=== PATIENT | female | born 1975 | race Caucasian/White ===

== ENCOUNTER 2016-07-17 12:32 | Emergency (ER) | payer SELFPAY ==
[~2016-07-17 12:32] MED LIST: ACTOS15 MG PO; ALPRAZOLAM1 MG PO; AMBIEN10 MG PO; AMOXICILLIN875 MG PO; GLUCOPHAGE1000 MG PO; LEXAPRO10 MG PO; OXYCODONE/APAP PO; PRAVACHOL40 MG PO; TRAZODONE HCL100 M1 PO; TRAZODONE50 MG PO; WELLBUTRIN XL150 MG PO
[2016-07-17] MEDS ORDERED: LANTUS SOL100 UNIT/1 SC (13:29)
[2016-07-17] MEDS ORDERED: ALPRAZOLAM1 M3 PO (13:29)
[2016-07-17] MEDS ORDERED: PRINIVIL5 M1 PO (13:29)
[2016-07-17] MEDS ORDERED: ESTRADIOL1 M1 PO (13:31)
[2016-07-17] MEDS ORDERED: ZITHROMAX250 M1 PO (15:32)
[2016-07-17] MEDS ORDERED: PROAIR HFA8.5 GM INH (15:32)
[2016-07-17] MEDS ORDERED: PERCOCET 5-3251 EACH PO (15:32)
== END 2016-07-17 15:46 ==
LOC: EDMED 12:32
DX: J20.9 Acute bronchitis, unspecified (principal); F17.210 Nicotine dependence, cigarettes, uncomplicated; E11.9 Type 2 diabetes mellitus without complications